=== PATIENT | male | born 1960 | race Caucasian/White ===

== ENCOUNTER 2017-03-12 14:04 | Outpatient (CLI) | payer BC ==
--- NOTE | 2017-03-12 18:09 | EKG ---
Test Reason : Blood Pressure : / mmHG Vent. Rate : 073 BPM Atrial Rate : 073 BPM P-R Int : 150 ms QRS Dur : 096 ms QT Int : 386 ms P-R-T Axes : 048 026 -23 degrees QTc Int : 425 ms Normal sinus rhythm Normal ECG When compared with ECG of 05-MAR-2010 23:55, No significant change was found Confirmed by NENA OLIVARES ([id number]) on 03/12/2017 6:08:57 PM Referred By: LAWRENCE Confirmed By:NENA OLIVARES
== END 2017-03-12 14:05 | disposition home or self-care (01) ==
LOC: LABBT 14:04
PROVIDERS: ATTEND Specialist
DX: Z01.818 Encounter for other preprocedural examination (principal); K42.0 Umbilical hernia with obstruction, without gangrene
CPT/HCPCS: 93005; 93010

== ENCOUNTER 2017-03-19 13:38 | Outpatient (CLI) | payer BC ==
[2017-03-19 14:11] LABS: #Eosinphils 0.4 thou/uL (0.0-0.7); #Lymphocytes 2.5 thou/uL (1.20-3.40); #Monocytes 0.6 thou/uL (0.11-0.59); #Neutrophils 4.2 thou/uL (1.40-6.50); %Basophils 0.4 % (0.0-1.0); %Eosinophils 4.8 % (0.0-10.0); %Monocytes 7.4 % (0.0-10.0); Hematocrit 45.3 % (42.0-52.0); White Blood Cell (WBC) Count 7.7 thou/uL (4.8-10.8)
[2017-03-19 14:31] LABS: Anion Gap 10 mmol/L (10-20); BUN (Urea Nitrogen) 17 mg/dL (8.4-25.7); Calc. Creatinine Clearance 0 mL/min (70-130); Calcium 9.3 mg/dL (7.8-10.44); Carbon Dioxide 30 mmol/L (22-29); Chloride 104 mmol/L (98-107); Estimated GFR-MDRD Greater than 90
== END 2017-03-19 13:39 | disposition home or self-care (01) ==
LOC: LABBT 13:38
PROVIDERS: ATTEND Specialist
DX: Z01.818 Encounter for other preprocedural examination (principal); K42.9 Umbilical hernia without obstruction or gangrene
CPT/HCPCS: 80048; 85025

== ENCOUNTER 2017-03-20 06:00 | Day surgery (SDC) | payer BC ==
[2017-03-12 14:28] VITALS: BMI 42.3
[2017-03-20] MEDS ORDERED: Fentanyl 250 MCG/5 ML VIAL ONE (06:12)
[2017-03-20] MEDS ORDERED: Ketorolac Tromethamine 30 MG/ML VIAL ONE ×2 (06:14→15:32)
[2017-03-20] MEDS ORDERED: CEFAZOLIN/Water 2 GM/20 ML SYRINGE ONE (06:14)
[2017-03-20] MEDS ORDERED: Bupivacaine/Epinephrine 0.25% 30 ML VIAL ONE (06:41)
[2017-03-20] MEDS ORDERED: Lidocaine 2% PF 5 ML VIAL ONE (07:16)
[2017-03-20] MEDS ORDERED: Midazolam HCl 2 mg/2 ml Vial ONE (07:18)
[2017-03-20] MEDS ORDERED: Fentanyl 100 MCG/2 ML VIAL ONE (08:58)
[2017-03-20] MEDS ORDERED: Propofol 200 MG/20 ML VIAL ONE (15:32)
[2017-03-20] MEDS ORDERED: PHENYLEPHRINE-NS 100 MCG/ML 10 ML SYRINGE ONE (15:32)
[2017-03-20] MEDS ORDERED: Ondansetron HCl/PF 4 MG/2 ML Vial ONE (15:32)
[2017-03-20] MEDS ORDERED: Succinylcholine Chloride 20 MG/ML 10 ml SYRINGE FS ONE (15:32)
[2017-03-20] MEDS ORDERED: Glycopyrrolate 0.2 MG/ML 5 ML SYRINGE ONE (15:32)
[2017-03-20] MEDS ORDERED: ePHEDrine/0.9% NaCl/PF SYRINGE 50 mg/10 ml ONE (15:32)
[2017-03-20] MEDS ORDERED: Lidocaine 1% PF 5 ML VIAL ONE ×2 (15:32)
--- NOTE | 2017-03-21 09:54 | OP ---
DATE OF PROCEDURE: 03/20/2017 PREOPERATIVE DIAGNOSIS: Umbilical hernia. POSTOPERATIVE DIAGNOSIS: Umbilical hernia. OPERATION PERFORMED: Umbilical hernia repair with mesh using 4.3-cm Parietex Composite hernia repair mesh. SURGEON: Yamil Thorpe M.D. ANESTHESIA: General endotracheal. INDICATIONS: The patient is an obese 57-year-old white male. He presents with a symptomatic umbilic al hernia and is taken to the operating room at this time for repair. DESCRIPTION OF OPERATION: Informed consent was obtained. Patient was taken to the operating room, w here general endotracheal anesthesia was obtained with the patient in supine position. Abdomen was p repped with ChloraPrep and draped in sterile fashion. Local anesthetic was infiltrated using 0.25% M arcaine with epinephrine. Curvilinear infraumbilical incision was created and dissection was carried down to the fascia. The umbilicus was dissected off the underlying fascia. The hernia defect was e asily visualized. The omental contents were reduced uneventfully. The fascial edges were debrided. A preperitoneal plane was dissected digitally circumferentially. A 4.3-cm Parietex Composite hernia mesh was obtained and placed in the preperitoneal space. The four tails were pulled up through the defect. The fascia was closed laterally on each side with a single interrupted suture of 0 Prolene, which incorporated two of the tails of the mesh. The defect was dramatically reduced with those two sutures, but I placed one additional suture in the center of the defect. The tails sutures were rimma giancarlo and passed off the field. The umbilicus was secured down to the fascia with interrupted sutures of 3-0 Vicryl. The wound was closed in layers with 3-0 and 4-0 Monocryl. Dermabond was placed exter ilya. A compression dressing was affected using cotton balls and Tegaderm held in place with Mastis ol. There were no complications. The patient tolerated the procedure well and was taken to recovery room in stable condition.
== END 2017-03-20 10:38 | disposition home or self-care (01) ==
LOC: SDC 06:00
PROVIDERS: ATTEND Specialist
PROC: 0WUF0JZ Supplement Abdominal Wall with Synthetic Substitute, Open Approach (ICD-10-PCS; principal; 2017-03-20)
DX: K42.9 Umbilical hernia without obstruction or gangrene (principal); E66.01 Morbid (severe) obesity due to excess calories; I25.2 Old myocardial infarction; Z68.42 Body mass index [BMI] 45.0-49.9, adult; Z79.899 Other long term (current) drug therapy; Z95.5 Presence of coronary angioplasty implant and graft; Z90.49 Acquired absence of other specified parts of digestive tract
CPT/HCPCS: 96374; J0131; J1885; J2001; J2250; J2405; J2704; J3010

== ENCOUNTER 2017-07-23 15:07 | Outpatient (CLI) | payer OTHER ==
--- NOTE | 2017-07-23 16:57 | RAD ---
THREE VIEWS LEFT WRIST: 07/23/17 HISTORY: Left wrist pain with pain on radial side. Symptoms have been present for two months. No known injury. COMPARISON: None available. FINDINGS: There is no evidence of a fracture, dislocation or other osseous abnormality involving the left wrist . There does appear to be minimal subcutaneous soft tissue swelling dorsal to the wrist. IMPRESSION: Minimal subcutaneous soft tissue swelling, but no acute osseous abnormality seen involving the left w rist. POS: [facility]
== END 2017-07-23 15:08 | disposition home or self-care (01) ==
LOC: SCSRAD 15:07
PROVIDERS: ATTEND Nurse Practitioner Family
DX: M25.532 Pain in left wrist (principal)

== ENCOUNTER 2017-12-31 13:42 | Outpatient (CLI) | payer OTHER ==
--- NOTE | 2017-12-31 15:00 | ULT ---
RIGHT UPPER QUADRANT ULTRASOUND: DATE: 12/31/17. PROVIDED CLINICAL HISTORY: Elevated LFTs. FINDINGS: Comparison is 03/28/10. The visualized portions of the pancreas and IVC appear normal. The liver de monstrates diffusely increased echogenicity compatible with fatty infiltration. No evidence for a ma ss or intrahepatic biliary ductal dilatation. There right kidney demonstrates no evidence for hydron ephrosis or mass. A simple-appearing right renal cyst is seen, measuring approximately 3.6 cm. The pancreas is not well visualized. The cardiac silhouette is not dilated. The liver measures approxi mately 22 cm in craniocaudal dimension of the right hepatic lobe. IMPRESSION: Hepatomegaly and fatty infiltration of the liver. POS: MED
== END 2017-12-31 13:43 | disposition home or self-care (01) ==
LOC: BICULT 13:42
PROVIDERS: ATTEND Family Medicine
DX: R74.8 Abnormal levels of other serum enzymes (principal); K76.0 Fatty (change of) liver, not elsewhere classified
CPT/HCPCS: 76705

== ENCOUNTER 2018-06-24 09:23 | Outpatient (CLI) | payer OTHER | END 2018-06-24 09:24 | disposition home or self-care (01) | LOC: DTY/OP 09:23 | PROVIDERS: ATTEND Nurse Practitioner Family | DX: E66.01 Morbid (severe) obesity due to excess calories (principal) | CPT/HCPCS: 97802 ==

== ENCOUNTER 2018-09-23 13:25 | Outpatient (CLI) | payer OTHER ==
[2018-09-23 13:57] LABS: #Basophils 0.1 thou/uL (0.0-0.2); #Eosinphils 0.3 thou/uL (0.0-0.7); #Lymphocytes 2.5 thou/uL (1.20-3.40); #Monocytes 0.6 thou/uL (0.11-0.59); %Basophils 0.8 % (0.0-1.0); %Lymphocytes 33.5 % (21.0-51.0); %Monocytes 7.8 % (0.0-10.0); %Neutrophils 53.9 % (42.0-75.0); Hemoglobin 15.7 g/dL (14.0-18.0); Mean Corpuscular HGB CONC 34.2 g/dL (32.0-36.0); Mean Corpuscular Hemoglobin 28.9 pg (27.0-31.0); Mean Corpuscular Volume 84.5 fL (78.0-98.0); Mean Platelet Volume 7.1 fL (7.4-10.4); Platelet Count 201 thou/uL (130-400); RBC Distribution Width 13.2 % (11.5-14.5); Red Blood Cell (RBC) Count 5.44 mill/uL (4.70-6.10); White Blood Cell (WBC) Count 7.5 thou/uL (4.8-10.8)
[2018-09-23 14:00] LABS: PTT 32.4 SEC (22.9-36.1)
[2018-09-23 14:04] LABS: Bilirubin Negative (Negative); Blood, Urine Negative (Negative); Glucose, Urine (Dipstick) Negative (Negative); Leukocyte Trace (Negative); Nitrite Negative (Negative); Protein, Urine (Dipstick) Negative (Neg-Trace); Urobilinogen 0.2 mg/dL (0.2-1.0); pH, Urine 5.5 (5.0-9.0)
[2018-09-23 14:10] LABS: ALT (SGPT) 60 U/L (8-55); AST (SGOT) 39 U/L (5-34); Albumin 4.1 g/dL (3.5-5.0); Alkaline Phosphatase 97 U/L (40-150); Anion Gap 14 mmol/L (10-20); BUN (Urea Nitrogen) 17 mg/dL (8.4-25.7); Bilirubin, Total 0.4 mg/dL (0.2-1.2); Calc. Creatinine Clearance 0 mL/min (70-130); Calcium 9.1 mg/dL (7.8-10.44); Carbon Dioxide 25 mmol/L (22-29); Cardiac Risk 4.9 (Less than 4.5); Chloride 106 mmol/L (98-107); Cholesterol 142 mg/dl (< 200 Desired); Estimated GFR-MDRD 87; Globulin 3.5 g/dL (2.4-3.5); Glucose 103 mg/dL (70-105); HDL Cholesterol 29 mg/dL (>60 Neg Risk); LDL Cholesterol, Calculated 34 mg/dL; Potassium 3.9 mmol/L (3.5-5.1); Protein, Total 7.6 g/dL (6.0-8.3); Sodium 141 mmol/L (136-145); Triglycerides 396 mg/dL (Less than 150)
[2018-09-23 14:29] LABS: Thyroid Stimulating Hormone 1.1665 uIU/mL (0.35-4.94)
[2018-09-23 14:41] LABS: Clarity Hazy (Clear); Specific Gravity, Urine 1.025 (1.002-1.036)
[2018-09-23 14:43] LABS: Bacteria/HPF 2+ HPF (None Seen); RBC/HPF None Seen HPF (0-3); Squamous Epithelial 0-3 HPF (0-3)
--- NOTE | 2018-09-23 15:21 | RAD ---
PA AND LATERAL VIEWS CHEST: HISTORY: Cough and chest pain. FINDINGS: Comparison is made with the exam of 04/28/2009. The heart size is borderline. The lungs are expanded without focal areas of consolidation, pneumotho races, or pleural effusions. There are degenerative changes in the spine. IMPRESSION: No acute process. POS: [facility]
[2018-09-23 16:39] LABS: Hemoglobin A1c 5.6 % (4.0-6.0)
[2018-09-23 16:46] LABS: Iron 70 ug/dL (65-175); Iron Binding Capacity, Total 285 mcg/dL (261-462)
[2018-09-23 17:13] LABS: Folate (Folic Acid) 16.5 ng/mL (7.0-31.4)
[2018-09-23 17:18] LABS: Ferritin 116.75 ng/mL (22-322); T4 7.7 ug/dL (4.87-11.72)
[2018-09-23 17:20] LABS: HIV (1/2) Antibody/Antigen Non-Reactive (NonReactive); HIV 1/2 INDEX 0.16 S/CO (<1.00); Vitamin D, 25 Hydroxy 27.3 ng/ml (> 30.0)
== END 2018-09-23 13:26 | disposition home or self-care (01) ==
LOC: SCSRAD 13:25
PROVIDERS: ATTEND Nurse Practitioner Family
DX: R07.9 Chest pain, unspecified (principal); R05 Cough; E66.01 Morbid (severe) obesity due to excess calories; E55.9 Vitamin D deficiency, unspecified; E56.9 Vitamin deficiency, unspecified; D50.9 Iron deficiency anemia, unspecified; E78.00 Pure hypercholesterolemia, unspecified; D51.0 Vitamin B12 deficiency anemia due to intrinsic factor deficiency; E11.9 Type 2 diabetes mellitus without complications; E53.9 Vitamin B deficiency, unspecified; K21.9 Gastro-esophageal reflux disease without esophagitis; E21.5 Disorder of parathyroid gland, unspecified; E46 Unspecified protein-calorie malnutrition
CPT/HCPCS: 36415; 71046; 80053; 80061; 81001; 82306; 82607; 82728; 82746; 83036; 83540; 83550; 83970; 84134; 84425; 84436; 84443; 84479; 85025; 85610; 85730; 87389